=== PATIENT | female | born 1990 | race Caucasian/White ===

== ENCOUNTER 2018-01-02 10:40 | Emergency (ER) | payer OTHER, SELFPAY ==
[2018-01-02 10:41] VITALS: BP 95/68; PULSE 69; RESP 20; TEMP 36.5; O2SAT 100; BMI 23.1
--- NOTE | 2018-01-02 10:50 | RAD_ITS ---
STUDY: X-RAY - LEFT KNEE REASON FOR EXAM: Female, 27 years old. Jumped up and came down twisting her knee. TECHNIQUE: 4 view(s) of the knee. COMPARISON: None. FINDINGS: Normal visualized distal femur. Normal visualized proximal tibia and fibula. Normal proximal tibiofibular articulation. Normal medial femorotibial compartment. Normal lateral femorotibial compartment. Normal patellofemoral articulation. The soft tissue structures are unremarkable. RAD/Knee 4 or More Views IMPRESSION: Normal x-ray examination of the left knee. Electronically Signed: Rangel Peterson MD at 12:01 EDT , Service support ,
[2018-01-02] MEDS: Naproxen 500 MG Tablet PO (10:59)
[2018-01-02] MEDS: HYDROcodone Bitartrate/Apap 5/325 Tablet PO (10:59)
--- NOTE | 2018-01-02 12:22 | ED.VISSUMM ---
- ER Visit Summary Date of Service: 01/02/18 Chief Complaint: Left knee injury playing basketball at [facility] [facility] History of Present Illness: The patient is a 27 F who presents with left knee pain that she localizes to the medial anterior left knee and posterior lateral left knee. She states she was playing bascule. When she landed on her feet she felt a pop and had immediate pain. She states is unable to bear weight. She denies any prior knee problems or injury. She denies paresthesia, anesthesia motor weakness. She denies hip pain. Denies ankle pain. Physical Examination: The left knee is not swollen compared to the right. The patella is not ballotable and there is no effusion. There is medial joint line tenderness and pain in the lateral popliteal fossa. There is no palpable mass or pulsatile mass. Varus valgus stress testing causes discomfort medially and slight laxity with good endpoint medially. Tasia's test is negative. Modified Brandt's test causes significant pain medially and unable to perform test because patient is hesitant and will not allow me to the test because of pain. DP and PT pulses are palpable. She has full active range of motion at the hip. She is able to extend to 170? and flex to approximately 100?. There is no instability or evidence of injury left ankle. Test Results: 4 view x-ray of the knee was obtained which was interpreted by me as negative. There is no fracture, subluxation, dislocation or effusion. Emergency Department Course and Treatment: Patient was medicated with Naprosyn and [place]. X-ray was obtained to evaluate for fracture. Treatment Plan: Patient requested follow-up with Dr. Sheehan. She was discharged with crutches, anti-inflammatory and [place]. Disposition: Discharge with outpatient follow-up Impression: Traumatic left knee pain with meniscal injury This note was generated with [employer] dictation software. It may contain incorrect words, spelling, and punctuation that were not noted in review of the chart prior to signing ED Disposition - Plan for ED Patient: Disposition: Home or Assisted Living Chief Complaint: Lower Extremity Injury Instructions: ED Meniscal Injury Knee Poss Prescriptions: Hydrocodone Bitart/Apap 5-325 [[place] 5MG-325MG] 1 tab PO Q6H PRN PRN 3 Days #10 tab PRN Reason: Pain Naproxen [Naprosyn] 500 mg PO BID #14 tab Referrals: Care Physician,No Primary [Primary Care Provider] - Timbo Sheehan DO [STAFF PHYSICIAN] - 5-7 Days Additional Instructions: Bear weight as tolerated. Ice 6-8 times a day 2030 minutes at a time for the next 3-5 days.
--- NOTE | 2018-01-02 12:28 | ED.DCSUM_ITS ---
- ER Visit Summary Date of Service: 01/02/18 Chief Complaint: Left knee injury playing basketball at [employer] [facility] History of Present Illness: The patient is a 27 F who presents with left knee pain that she localizes to the medial anterior left knee and posterior lateral left knee. She states she was playing bascule. When she landed on her feet she felt a pop and had immediate pain. She states is unable to bear weight. She denies any prior knee problems or injury. She denies paresthesia, anesthesia motor weakness. She denies hip pain. Denies ankle pain. Physical Examination: The left knee is not swollen compared to the right. The patella is not ballotable and there is no effusion. There is medial joint line tenderness and pain in the lateral popliteal fossa. There is no palpable mass or pulsatile mass. Varus valgus stress testing causes discomfort medially and slight laxity with good endpoint medially. Tasia's test is negative. Modified Brandt's test causes significant pain medially and unable to perform test because patient is hesitant and will not allow me to the test because of pain. DP and PT pulses are palpable. She has full active range of motion at the hip. She is able to extend to 170? and flex to approximately 100?. There is no instability or evidence of injury left ankle. Test Results: 4 view x-ray of the knee was obtained which was interpreted by me as negative. There is no fracture, subluxation, dislocation or effusion. Emergency Department Course and Treatment: Patient was medicated with Naprosyn and [place]. X-ray was obtained to evaluate for fracture. Treatment Plan: Patient requested follow-up with Dr. Sheehan. She was discharged with crutches, anti-inflammatory and [place]. Disposition: Discharge with outpatient follow-up Impression: Traumatic left knee pain with meniscal injury This note was generated with [employer] dictation software. It may contain incorrect words, spelling, and punctuation that were not noted in review of the chart prior to signing ED Disposition - Plan for ED Patient: Disposition: Home or Assisted Living Chief Complaint: Lower Extremity Injury Instructions: ED Meniscal Injury Knee Poss Prescriptions: Hydrocodone Bitart/Apap 5-325 [[place] 5MG-325MG] 1 tab PO Q6H PRN PRN 3 Days #10 tab PRN Reason: Pain Naproxen [Naprosyn] 500 mg PO BID #14 tab Referrals: Care Physician,No Primary [Primary Care Provider] - Timbo Sheehan DO [STAFF PHYSICIAN] - 5-7 Days Additional Instructions: Bear weight as tolerated. Ice 6-8 times a day 2030 minutes at a time for the next 3-5 days.
[2018-01-02 12:49] VITALS: BP 107/72; PULSE 80; RESP 16; O2SAT 100
== END 2018-01-02 13:05 | disposition home or self-care (01) ==
PROVIDERS: Emergency Provider Emergency Medicine
DX: S83.8X2A Sprain of other specified parts of left knee, initial encounter (principal); M25.562 Pain in left knee; X58.XXXA Exposure to other specified factors, initial encounter; Y93.67 Activity, basketball; Y92.29 Other specified public building as the place of occurrence of the external cause; Y99.0 Civilian activity done for income or pay
CPT/HCPCS: 73564; 99284

== ENCOUNTER → 2018-01-12 15:46 | Outpatient (CLI) | payer OTHER, SELFPAY ==
--- NOTE | 2018-01-12 15:47 | MRI_ITS ---
STUDY: MRI LEFT KNEE REASON FOR EXAM: Female, 28 years old. Injury 10 days ago. Limited range of motion. Pain. TECHNIQUE: Standardized fat and water weighted pulse sequences were obtained in all 3 orthogonal planes. COMPARISON: X-ray January 02, 2018. FINDINGS: Normal medial meniscus. Normal hyaline cartilage of the medial femorotibial compartment. There is reactive marrow edema of the posterior medial tibial plateau. There is a partial tear and sprain of the MCL with interstitial and periligamentous edema. Normal distal semimembranosus, gracilis and semitendinosus tendons. Normal lateral meniscus. Normal hyaline cartilage of the lateral femorotibial compartment. There is reactive marrow edema of the lateral femoral condyle and posterior lateral tibial plateau. Normal proximal tibiofibular articulation. Normal lateral collateral (fibular) ligament. Normal popliteus tendon. Normal biceps femoris tendon. Discontinuity with rupture of the anterior cruciate ligament (ACL), series 4 image 06/13. Normal posterior cruciate ligament (PCL). Normal congruent patellofemoral articulation. Normal hyaline cartilage of the patellofemoral compartment. Normal medial and lateral patellar retinaculum. Normal quadriceps tendon. Normal patellar tendon. Normal Hoffa's fat pad. There is a large volume joint effusion. The soft tissues are unremarkable. The otherwise visualized osseous structures are unremarkable. MRI/Lower Ext Joint Only (Routine) IMPRESSION: Anterior cruciate ligament rupture. Medial collateral ligament sprain and partial tear. Bone bruising. Joint effusion. Electronically Signed: Bharath Theodore MD at 17:29 EDT , Service support ,
== END ==
PROVIDERS: Visit Provider Physician Assistant
DX: S83.207A Unspecified tear of unspecified meniscus, current injury, left knee, initial encounter (principal)
CPT/HCPCS: 73721

== ENCOUNTER 2018-02-22 14:00 | Outpatient (RCR) | payer OTHER, SELFPAY ==
--- NOTE | 2018-01-21 11:46 | HP.PTEVAL_ITS ---
Patient's Visit Information LORENZA URIBE is a 28 year old F referred to Physical Therapy by SHRADDHA Ocasio with a diagnosis of ACL/Mensical Tear. Date of Evaluation: 01/21/18 Physical Therapist: Mirela Junior - Visit Plan Frequency: 2x /Week Duration: 4 Weeks Plan: Focus on ROM, edema and strength pre surgical intervention - Subjective Subjective: Running group at [employer]- came down and popped- non cantact ACL, MCL and mensicus. Surgery is waiting for [employer] and hoping to have surgery at end of January. Injury was January 02, 2018. Went to the ER right away - then progress through [employer] since then. 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 She has been wearing the brace- She has been taking pain meds at night- tries to avoid as much as possible. Best: 0/10 Eases: pain meds , ice. Agg: on it for long periods of time, wearthe brace, walking a lot. Worst:6/10. Describes as sharp/shooting and dull achy at the end of the day. medial and posterior knee is the pain. No rading pain- no N/T. Has not been back to work- unable to restrain- no light duty. 15 month old son at home. PMHx : none Meds: hydrocodein and naproxen. Sleep: not disturbed but does bother her if she wakes up. Is able to drive due to being left leg. - Objective Posture: good throughout. Gait: antalgic- decreased stance on the left LE- poor heel/toe pattern secondary to decreased ROM. Observation: hinged brace on left knee. Girth: Patella: 36 cm 6 below: 34 cm 6 above: 50cm. ROM: 10-100 degrees. Strength: quad set visible but significantly less than other side- ankle: 5/5, hip: 4+/5 Core: fair - Goals Goal 1:: Patient will be I with HEP and progression Goal Time Frame: 4-6 Weeks Goal 2:: Patient will demo 0-115 degrees of ROM Goal Time Frame: 4-6 Weeks Goal 3:: Patient will have increased quad girth by 3 cm Goal Time Frame: 4-6 Weeks Goal 4:: Patient will decrease edema by 3 cm at patella Goal Time Frame: 4-6 Weeks - Rehabilitation Potential Physical Therapy Diagnosis: Patient presents with decreased ROM, strength, and muscular endurance s/p ACL and meniscal tear. Rehabilitation Potential: Fair - Anticipated Interventions Patient/Client Instruction: Educate patient on: Benefits of Fitness Program Therapeutic Exercise to Include: Strength training, Endurance training, Balance training, Coordination, Agility training, Body mechanics, Postural training, Flexibilty training, Gait and locomotor training, Passive ROM, Active ROM, Dynamic Lumbar Stabilization For the Purpose of:: To improve muscle performance and motor function TENS: Yes Cryotherapy (ice pack, ice massage): Yes Thermo therapy (hot pack): Yes Vasopneumatic device: Yes For the Purpose of:: To decrease pain, To decrease swelling/inflammation Thank you for the opportunity to evaluate your patient. For Medicare and Medicare HMO plans, please review the plan of care and approve it. It will need to be FAXED BACK to us at [phone] for Medicare purposes. Please let me know if there are questions or concerns regarding this plan of care. Physician Signature: Date:
--- NOTE | 2018-02-22 14:39 | HP.PTDCSUM ---
HP - PT D/C Summary It has been my pleasure to treat LORENZA URIBE under orders from SHRADDHA Ocasio, for the diagnosis of ACL/Mensical Tear for a total of 8 visit(s). Discharge Date: 02/22/18 Please see the following information for a summary of their discharge status. - Subjective Subjective: Plan nfor surgery tommorrow ACL reconstruction. Swelling better. Stronger overall - Pain Left Back Pain Intensity (Out of 10): 4 - Objective Objective/Function: GAIT: normal jennifer. NEURO: denies parathesia/tingling. AROM: 0-130 degrees supine knee flexion. MMT: quads/hams/hip 4/5. STAIRS: ascend/descend steps alternate. ATROPY: quad 6 45 cm - Goals Goal 1:: Patient will be I with HEP and progression Goal Progress: Goal Met Goal 2:: Patient will demo 0-115 degrees of ROM Goal Progress: Goal Met Goal 3:: Patient will have increased quad girth by 3 cm Goal Progress: Progressing Goal 4:: Patient will decrease edema by 3 cm at patella Goal Progress: Goal Met - Plan Plan: D/C due ACL reconstruction - D/C Information Discharge Comments: scheduled for ACL reconstruction If there are questions or concerns regarding this patient's physical therapy, please feel free to call me at [phone]. Thank you for the referral of this patient. Sincerely, Pradip Bolden, PT,
== END 2018-02-22 19:00 | disposition home or self-care (01) ==
LOC: PT 14:00
PROVIDERS: Visit Provider Physician Assistant
DX: S83.8X2D Sprain of other specified parts of left knee, subsequent encounter (principal)
CPT/HCPCS: 97110; 97161; 97530

== ENCOUNTER 2018-02-23 09:59 | Day surgery (SDC) | payer OTHER, SELFPAY ==
[2018-02-23] VITALS (9 sets, daily range): BP systolic 105–124; BP diastolic 61–78; PULSE 70–93; RESP 16–18; TEMP 36.5–37; O2SAT 93–100; BMI 22.6
[2018-02-23 11:03] LABS: Internal QC Validated? YES +Cl - CLEAR BKGD; Pregnancy, Urine Negative Negative
[2018-02-23] MEDS: Cefazolin 2 GM in 0.9% Normal Saline 100 ML IV (12:07)
[2018-02-23] MEDS: Bupiv/Epi 0.5% Mpf 30 ML Vial (12:28)
--- NOTE | 2018-02-23 14:00 | PCM.DC.ORTHO ---
Discharge Diet: No Restrictions - ttwb left leg for 6 weeks, 0-40 degrees of flexion while seated, keep knee locked in extension during ambulation and at night, follow up on wednesday with yasmine sarmiento, call with concerns Discharge Activity: May Not Drive May shower in (days): 1 Ice area for (Minutes): 20 - Every hour while awake. Weight Bearing Status: Weight bearing as tolerated Keep extremity elevated above heart level: Operative Extremity Call your doctor if your incision/area has: Continuous Slow Oozing, Sudden Increased Bleeding, Increased Pain/ Swelling, Increased Redness, Foul Smelling Discharge Call your doctor if you observe: Fever of 101 or Higher, Coldness, Increased Pain, Numbness or Tingling, Change in Color, Calf discomfort Allergies/Adverse Reactions: Allergies No Known Allergies Allergy (Verified 02/16/18 12:49) Medications to take at Discharge Hydrocodone Bitart/Apap 5-325 [[place] 5MG-325MG] 1 tab PO Q6H PRN PRN 3 Days #10 tab 01/02/18 Naproxen [Naprosyn] 500 mg PO BID #14 tab 01/02/18 Diazepam [Valium] 4 mg PO TID PRN PRN 7 Days #20 tablet 02/23/18 Hydrocodone Bitart/Apap 5-325 [[place] 5MG-325MG] 1 - 2 tablet PO Q6H PRN PRN 5 Days #40 tablet 02/23/18 The following prescriptions were given: Hydrocodone Bitart/Apap 5-325 [[place] 5MG-325MG] 1 - 2 tablet PO Q6H PRN PRN 5 Days #40 tablet PRN Reason: Pain Diazepam [Valium] 4 mg PO TID PRN PRN 7 Days #20 tablet PRN Reason: Spasms Primary Care Physician: Care Physician,No Primary [Primary Care Provider] - Test Results: Test results from this visit will be discussed in further detail at your follow-up appointment, if applicable. Please Follow Up With: Eryn Calderón, - [phone]
--- NOTE | 2018-02-23 14:01 | PCM.OPRPT ---
Report of Operation Date of Procedure: 02/23/18 Pre-Operative Diagnosis: left knee acl tear, med men tear Post-Operative Diagnosis: same Surgery/Procedure Performed:: left kne acl reconstruction with autograft hamstring/ graftlink; medial meniscus repair Type of Anesthesia:: General/Regional Anesthesiologist: Bishnu Celaya Specimen's removed: none Estimated Blood Loss (mL): minimal Fluids Replaced: 1000ml lr Description of Procedure: Preoperative note Patient seen and examined preoperative holding area. Left knee was marked. Patient continued to have medial knee pain as well as confirms ACL tear on MRI after falling at work we also question whether not she had a medial meniscus tear but because radiology did not note the medial meniscus tear on her imaging was not allowed. We discussed that we will repair whatever is necessary once we see it visually with the scope. Risks benefits alternatives surgery discussed with patient. Risks including but not limited to blood loss, blood clot, infection, neurovascular injury, failure procedure, loss of life and loss of limb. Patient is aware would like proceed with a knee arthroscopy ACL reconstruct with autologous hamstring graft link Arthrex repair is indicated. Operative note Patient seen and examined appropriate preoperative holding area. Left knee was marked. Patient brought to the operating room placed supine on the operating table. Signing, anesthesia, antibiotics were measured. The left knee was prepped and draped in usual sterile fashion with tourniquet around her upper thigh. Timeout was performed. We then marked our incision for hamstring retrieval. We marked that we made about a 3's and 1/2-4 cm incision after insufflating the incision with 7 cc of 5 cc of 1/4% bupivacaine with epi. And then used a 15 blade cut and dissected out tenotomy syllable of the hamstrings we then standard technique isolated the stomach T and prepared in standard fashion for a graft link Arthrex repair on the back table. We measured to be a 9 size graft. We then moved to our knee arthroscopy left leg was elevated exsanguinated tourniquet was raised her pressure of 250 torr. We began with creating an anterior lateral portal. Begin our diagnostic arthroscopy. We created anterior medial portal under direct visualization. We probed the posterior horn of the medial meniscus there is an obvious tear that we are able to stick a probe and was which was unstable. We then wrapped it and placed to reverse curved FasT-Fix suture devices across the repair and did note that a good repair after we had pleaded our fixation. We then moved to the ACL the ACL was obviously talked torn. We then performed our notchplasty and debrided an Anson the ACL down to the tibia but he lived leaving quite discernible stump at the insertion. We then used a lateral flip upper cutter out standard technique of flip cut the lateral tunnel after he placed a bump and the need to flex it to 90? ensuring proper positioning of her femoral tunnel. We then flipped and did the tibial tunnel and placing appropriate stitches through the tunnels and then irrigated the knee with copious amounts of sterile saline. We then placed our graft through the medial portal up through the lateral femoral cortex of the button on the outside and pulled down and then brought the rest the graft into the socket which we had good fill of the socket of the femoral tunnel. We then moved to the tibial tunnel tibia site was in flip cut as well and the graft had been was brought into the tibial tunnel in standard technique. We then tightened the graft with the knee in extension with limited posterior drawer with a needed about 20? of flexion. The all of the wounds were irrigated with copious amounts of sterile saline. We were able to palpate the button on the lateral femoral cortex. The portals were closed with interrupted 4-0 nylon and the 2 incisions were closed with deep 3-0 Vicryl and running 4-0 Monocryl. Sterile dressings were applied and patient tourniquet was deflated for total working time of 84 minutes. A hinged knee brace was placed on the patient received a postoperative regional block. Patient can range of motion from 0-40 with an the brace and locked in extension during ambulation at night. Next Patient transferred to recovery room in stable condition there are no comp occasions. Postoperative Toe-touch weightbearing left leg Hospital pharmacy has prescriptions Call with increased pain numbness tingling further issues arise Follow-up on Wednesday with Nasim for the dressing change and brace eval Call with any concerns This note was generated with [employer]ation software. It may contain incorrect words, spelling, and punctuation that were not noted in checking the note before signing.
[2018-02-23] MEDS: HYDROcodone Bitartrate/Apap 5/325 Tablet PO (16:45)
== END 2018-02-23 18:36 | disposition home or self-care (01) ==
LOC: SDC 10:01 → AC 10:02
PROVIDERS: Anesthesiology; Visit Provider Orthopaedic Surgery
PROC: (CPT 29882; principal; 2018-02-23 11:10)
DX: S83.512A Sprain of anterior cruciate ligament of left knee, initial encounter (principal); S83.242A Other tear of medial meniscus, current injury, left knee, initial encounter; Z79.1 Long term (current) use of non-steroidal anti-inflammatories (NSAID); Z79.891 Long term (current) use of opiate analgesic; X58.XXXA Exposure to other specified factors, initial encounter; Y93.9 Activity, unspecified; Y92.9 Unspecified place or not applicable; Y99.0 Civilian activity done for income or pay
CPT/HCPCS: 29882; 29888; 81025; C1713; J7120; J2405

== ENCOUNTER 2018-09-07 15:00 | Outpatient (RCR) | payer OTHER, SELFPAY ==
--- NOTE | 2018-04-01 17:00 | HP.PTEVAL_ITS ---
Patient's Visit Information LORENZA URIBE is a 28 year old F referred to Physical Therapy by SHRADDHA Ocasio with a diagnosis of S/P ACL RECONSTRUCTION WITH MEDIAL MENISCUS WITH REPAIR. Date of Evaluation: 04/01/18 Physical Therapist: Pradip Bolden, PT, - Visit Plan Frequency: 2-3x /Week Duration: 3 Months Plan: SEE PROTOCAL GUIDELINES FOR ACL RECONSTRUCTION WITH AUTOGRAFT AND MENISCUS REPAIR ON 02/23/18. S/P 04/06/18 6WEEKS. PATIENT IS TTWB WITH CRUCHES WITH BRACE LOCKED IN EXTENSION ABLE TO UNLOCK SITTING 60 DEGREES - Subjective Subjective: This 28 y/o femsle presenst to physical therapy with left ACL rec onstruction with meniscus repair with hamstring graft on 02/23/[address]casio at [facility]. Pateint was d/c with crutches with NWB left ,then post 2weeks TDWB LLE with knee brace locked when walking,and rest unlocked at 30 degrees. Patient intially DOI December 25 at work group of boys playing basketball jumping felt pop. Patient went to ER DOI . Seen DR Ocasio ,MRI was completed shown ACL and meniscus medial tear. Patient was in PT prior to PT. Patient has min edema uses ice. Denies parathesia/tingling . Patient using Estim at home. Sleeping okay .Patient ACL reconstruction limits QOL and function especially return to work. VOCATION: [employer]. SOCIAL: one children - Objective POSTURE: brace intact. GAIT: ambulated with TDWB LLE with crutches knee brace locked. NUERO: intact ,denies parathesia/tingling. PALPATION: unremarkable. EDEMA: joint line 37 cm. QUAD MEASURMENT: 6 ABOVE NID PATELLA 42cm. MMT: NT QUAD/HAMS ,hip abd/ext/add 4-/5. AROM: 0-60 Degrees supine knee flexion per MD. -FERNANDO. NO EXTENSION LAG WITH SLR - Goals Goal 1:: Patient to be Independant with HEP per guidelines. Goal Time Frame: 12-16 Weeks Goal 2:: Patient to improve AROM knee flexion 0-130 degrees or greater to improve function with gait. Goal Time Frame: 12-16 Weeks Goal 3:: Patient to gait with normal jennifer. Goal Time Frame: 12-16 Weeks Goal 4:: Patient to improve proprioception symmtrical right to left to improve function. Goal Time Frame: 12-16 Weeks Goal 5:: Patient to increase strength quads/hams/VMO 4/5 to improve function with gait . Goal Time Frame: 12-16 Weeks Goal 6:: Patioent be able to perform ADL'S and housework tasks be able to RWT with no limitations. Goal Time Frame: 12-16 Weeks - Rehabilitation Potential Physical Therapy Diagnosis: This patient underwent s/p ACL reconstruction with medial meniscus with autograft hamstrings garft on 02/23/18 with patient locked in extension with brace with TTDW using crutches okay to unlock to 60 degrees. Patient has deficits with ROM ,strength ,atrophied quad,balance proprioception with walking and RTD to job demnads /ADL'S. Rehabilitation Potential: Good - Anticipated Interventions Patient/Client Instruction: Educate patient on: Condition, Plan of Care For the Purpose of:: To decrease pain, To increase ROM, To improve muscle performance and motor function, To improve ability to perform ADL's, To increase tolerance to activity/condition/position, To improve performance and independence with ADL's, To improve ability of physical actions for home/community/work/leisure, To improve health of tissue, To decrease soft tissue restriction, To increase flexibility/ROM, To improve endurance, To improve balance, To improve safety with gait, To improve ability to perform tasks related to life management Therapeutic Exercise to Include: Strength training, Endurance training, Balance training, Flexibilty training, Gait and locomotor training, Passive ROM, Active ROM Comment: SEE GUIDELINES FOR ACL RECONSTRUCTION AND MENISCUS REPAIR For the Purpose of:: To decrease pain, To increase ROM, To improve muscle performance and motor function, To improve ability to perform ADL's, To increase tolerance to activity/condition/position, To improve performance and in dependence with ADL's, To improve ability of physical actions for home/community/work/leisure, To improve gait and locomotor functions, To improve health of tissue, To increase flexibility/ROM, To improve balance, To improve safety with gait TENS: Yes IF ES: Yes Cryotherapy (ice pack, ice massage): Yes Thermo therapy (hot pack): Yes Vasopneumatic device: Yes For the Purpose of:: To decrease pain, To decrease swelling/inflammation, To increase ROM, To improve nutrient delivery to tissue, To increase oxygenation perfusion, To improve health of tissue, To decrease soft tissue restriction Thank you for the opportunity to evaluate your patient. For Medicare and Medicare HMO plans, please review the plan of care and approve it. It will need to be FAXED BACK to us at [phone] for Medicare purposes. Please let me know if there are questions or concerns regarding this plan of care. Physician Signature: Date:
== END 2018-09-07 19:00 | disposition home or self-care (01) ==
LOC: PT 15:00
PROVIDERS: Referring Provider Physician Assistant; Visit Provider Physician Assistant
DX: S83.512D Sprain of anterior cruciate ligament of left knee, subsequent encounter (principal); S80.02XD Contusion of left knee, subsequent encounter; S83.412D Sprain of medial collateral ligament of left knee, subsequent encounter; Z98.890 Other specified postprocedural states
CPT/HCPCS: 97016; 97110; 97161

== ENCOUNTER 2018-12-29 09:00 | Outpatient (RCR) | payer OTHER, SELFPAY ==
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
== END 2018-12-29 19:00 | disposition home or self-care (01) ==
LOC: PT 09:00
PROVIDERS: Referring Provider Physician Assistant; Visit Provider Physician Assistant
DX: S83.512D Sprain of anterior cruciate ligament of left knee, subsequent encounter (principal); Z98.890 Other specified postprocedural states
CPT/HCPCS: 97014; 97110; 97530; G0283

== ENCOUNTER 2020-08-04 18:17 | Emergency (ER) | payer OTHER, SELFPAY ==
[2020-08-04 18:18] VITALS: BP 114/59; PULSE 75; RESP 16; TEMP 36.2; BMI 23.3
--- NOTE | 2020-08-04 18:37 | ED.VIS.GEN ---
History of Present Illness Chief Complaint: Lower Extremity Injury Informant: Patient Onset: Today Current Severity: Mild Maximum Severity: Mild Narrative: Patient present secondary to left knee pain. She had surgery for ACL, MCL, meniscus tears in 2019. Patient states she was at work today. She turned quickly and felt a pop sensation on the medial knee. She has a slight antalgic gait now. She states she has had paresthesias distal to her knee since her surgery and that is unchanged. Past Medical History - Allergies and Home Meds Allergies/Adverse Reactions: Allergies No Known Allergies Allergy (Verified 12/20/18 14:37) Primary Care Physician: Trinidad Cheney DO [Primary Care Provider] - Past Medical History: None Surgical History: - - Left knee Smoking Status: Never smoker Review of Systems General: Denies: Chills, Fever Eyes: Denies: Visual changes - bilaterally ENT: Denies: Bilateral ear pain Cardiovascular: Denies: Chest pain Respiratory: Denies: Dyspnea, Cough Gastrointestinal: Denies: Abdominal pain, Vomiting, Diarrhea Genitourinary: Denies: Dysuria Musculoskeletal: Reports: Extremity Pain. Denies: Swelling Skin: Denies: Rash Neurological: Denies: Headache Hematologic: Denies: Easy bruising, Easy bleeding Allergy: Denies: Uticaria Physical Exam Vital Signs/Narrative: Vital Signs Temp Pulse Resp BP 08/04/20 18:18 97.1 F L 75 16 114/59 L Inital Vital Signs reviewed: Yes General: Well nourished, Well developed Head: Normocephalic ENT: Moist mucous membranes Neck: Supple Cardiovascular: Regular rate, Regular rhythm Respiratory: No distress, CTA bilaterally Abdomen: Soft, Nontender Extremities: - - Tenderness palpation on the medial aspect of the left knee. Full range of motion. Anterior drawer test is negative. Ligaments are tight on testing. She does have medial pain with valgus stress testing. Skin: Normal color, No rash Neurological: Alert, Oriented x3 Psychological: Normal affect Diagnostic/Tx/Re-eval 4 views of the left knee are reviewed by myself. No acute bony injury noted. - Medical Decision Making X-rays reviewed and discussed with the patient. Area of tenderness is right at one of the surgical pins in place. This may all be scar tissue. Ligaments are stable on testing. Anson wrap will be applied and she will follow up with [facility]. If she still having continued problems I anticipate they will refer her back to her orthopedic doctor for further evaluation and imaging. ED Disposition - Plan for ED Patient: Disposition: Home or Assisted Living Diagnosis: Left knee sprain Instructions: ED Knee Sprain Referrals: [facility] [GROUP OF PHYSICIANS] - 3-5 Days
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
== END 2020-08-04 19:17 | disposition home or self-care (01) ==
PROVIDERS: Emergency Provider Emergency Medicine
DX: S83.92XA Sprain of unspecified site of left knee, initial encounter (principal); X50.1XXA Overexertion from prolonged static or awkward postures, initial encounter; Y93.89 Activity, other specified; Y92.89 Other specified places as the place of occurrence of the external cause; Y99.0 Civilian activity done for income or pay
CPT/HCPCS: 73564; 99282

== ENCOUNTER → 2020-08-12 13:24 | Outpatient (CLI) | payer OTHER, SELFPAY ==
[2020-08-04 18:18] VITALS: BMI 23.3
--- NOTE | 2020-08-12 13:34 | MRI_ITS ---
STUDY: MRI LEFT KNEE REASON FOR EXAM: Anterior and medial knee pain, surgery in 2019. TECHNIQUE: Standardized fat and water weighted pulse sequences were obtained in all 3 orthogonal planes. COMPARISON: Radiographs 08/04/2020, MRI images 01/12/2018. FINDINGS: There is a flap tear of the medial meniscus with a displaced fragment in the medial gutter (T2 coronal images 13-17). Normal hyaline cartilage of the medial femorotibial compartment. There is slight subchondral bone edema of the medial tibial plateau, a stress phenomenon. There is very mild periligamentous inflammation of the medial collateral ligament (T2 coronal image 16). Normal distal semimembranosus, gracilis and semitendinosus tendons. Normal lateral meniscus. Normal hyaline cartilage of the lateral femorotibial compartment. Normal lateral femoral condyle and tibial plateau. Normal proximal tibiofibular articulation. Normal lateral collateral (fibular) ligament. Normal popliteus tendon. Normal biceps femoris tendon. The anterior cruciate ligament graft appears intact (series 7 images 10, 11). Normal posterior cruciate ligament (PCL). Normal congruent patellofemoral articulation. Normal hyaline cartilage of the patellofemoral compartment. Normal medial and lateral patellar retinaculum. Normal quadriceps tendon. Normal patellar tendon. There is postoperative scarring in Hoffa''s fat pad. There is a small joint effusion. There is a mildly thickened medial patellar plica (T2 sagittal image 9). The soft tissues are unremarkable. There are postoperative changes of the distal femur and proximal tibia from anterior cruciate ligament reconstruction. MRI/Lower Ext Joint Only (Routine) IMPRESSION: Medial meniscal tear. Very mild periligamentous inflammation of the medial collateral ligament. Mildly thickened medial patellar plica. Intact anterior cruciate ligament graft. Small joint effusion. Electronically Signed: Leroy Terrazas MD at 14:32 EST Tel , Service support ,
== END ==
PROVIDERS: Referring Provider Family Medicine; Visit Provider Family Medicine
DX: S83.92XA Sprain of unspecified site of left knee, initial encounter (principal)
CPT/HCPCS: 73721

== ENCOUNTER 2020-10-16 07:49 | Day surgery (SDC) | payer OTHER, SELFPAY ==
--- NOTE | 2020-10-16 07:00 | HP_ITS ---
Intake Intake Visit Reasons: left knee Chief Complaint: left knee Allergies No Known Allergies Allergy (Verified 08/27/20 09:00) [facility] Social History (Updated 09/25/20 @ 08:17 by SHRADDHA Gale) Smoking Status: Never smoker HPI left knee: Surgical H&P: Yes Details: Parts of this documentation were recorded by a scribe, this documentation accurately reflects the service provided and the decisions made by me, Dr. Eryn Calderón DO 09/24/20 1010. LORENZA URIBE is a 30 year old F here today for sign consent for surgery 10/16/20. Surgery was explained at last visit and she wishes to proceed with a left knee arthroscopy for medial meniscus repair vs meniscectomy, surgery as indicated. Ortho Exam Left Knee Homans Sign: No Examination: Yes med jt line tenderness, No Lat jt line tenderness, No TTP inf pole patella Stability: NML: Anterior Drawer, NML: Tasia, NML: Posterior Drawer, NML: Valgus 0, NML: Valgus 30, NML: Varus 0, NML: Varus 30, NML: Dial 90, NML: Dial 30 Patellar Tilt Normal: Yes Assessment & Plan Problems 1. Other tear of medial meniscus, current injury, left knee, initial encounter S83.242A 2. Sprain of unspecified site of left knee, initial encounter S83.92XA Plan - Dr. Eryn Calderón DO Personally reviewed the patient's medical history, medications, surgeries and recent exams if available. Obtained X-rays of patient's left knee. Personally reviewed x-rays. There is no obvious fracture, dislocation, or lucency noted. Personally reviewed patients MRI of the left knee. Patient educated that she does have a medial meniscus tear and her graft is intact. Treatment options are do nothing or steroid injection or PT or left knee arthroscopy for meniscus repair vs meniscectomy. Reviewed the pre-operative plans with the patient. Risks and benefits of the procedure were fully explained, including but not limited to infection, neurovascular injury, continued pain, arthritis, stiffness, need for further surgery, re-injury, DVT, PE, general risks of anesthesia, and loss of limb or life. The patient understands all the risks and does wish to proceed with written consent for left knee arthroscopy for medial meniscus repair vs meniscectomy, surgery as indicated. Follow up post op or sooner if pain, swelling, numbness or associated symptoms, or concerns develop. , All questions answered. Patient in agreement of plan. Coding Level of Care Code Off vis,est,level 4 Diagnoses Other tear of medial meniscus, current injury, left knee, initial encounter S83.242A Sprain of unspecified site of left knee, initial encounter S83.92XA
[2020-10-16 08:15] LABS: Internal QC Validated? YES +Cl - CLEAR BKGD; Pregnancy, Urine Negative Negative
[2020-10-16 08:16] VITALS: BP 100/59; PULSE 75; RESP 16; TEMP 37.2; O2SAT 99; BMI 22.4
[2020-10-16] MEDS: Lactated Ringers 1,000 ML 100 ML IV (08:23)
--- NOTE | 2020-10-16 09:12 | PCM.DC ---
Discharge Instructions Outpatient Procedure Reason For Visit: LT KNEE ARTHROSCOPY MEDICAL MENISCUS REPAIR VS MEN Diet Discharge Diet: No restrictions Activity Discharge Activity: Return to Normal Activity Follow Up Care When: 2 weeks, wbat left leg, elevate/ice/ankle pumps Test Results: Test results from this visit will be discussed in further detail at your follow-up appointment, if applicable. Discharge Plan Admission Attending Provider: Eryn Calderón Primary Care Provider: Trinidad Cheney Discharge Orders/Prescriptions Prescriptions: New oxycodone-acetaminophen [Percocet] 5-325 mg tablet 1 tab PO Q6H PRN (Reason: pain) 5 Days Qty: 28 RF: 0 No Action krifskzcgdyc-Mq-qrxf-minerals 1 EACH tablet 1 tablet PO DAILY RF: 0 Other Ambulatory Orders: COVID 19 AG RAPID (RN COLLECT) (Routine) Timeframe: [id number] Facility: [facility] - Location: Laboratory Ordered By: Dr. Vasiliy Ballard Referrals: Trinidad Cheney, [Primary Care Provider] - Disposition Discharge Orders: Discharge Patient (Routine); Ordered 10/16/20 Ordered By: Dr. Eryn Calderón
--- NOTE | 2020-10-16 09:13 | HP.PCM_ITS ---
History and Physical [facility] [id number] [facility] [address] [place] [address] [phone] OFFICE VISITDate of Service: 09/24/20 MR#:[id number]:[id number]: LORENZA URIBE LRep #:[id number]:1990 Provider:Dr. Eryn Calderón DOAge/Sex: 30/F [place] [place] [place] Int[place] Intake Visit Reasons: left knee Chief Complaint: left knee Allergies No Known Allergies Allergy (Verified 08/27/20 09:00) [facility] Social History (Updated 09/25/20 @ 08:17 by SHRADDHA Gale) Smoking Status: Never smoker HPI left knee: Surgical H&P: Yes Details: Parts of this documentation were recorded by a scribe, this documentation accurately reflects the service provided and the decisions made by me, Dr. Eryn Calderón DO 09/24/20 1010. LORENZA URIBE is a 30 year old F here today for sign consent for surgery 10/16/20. Surgery was explained at last visit and she wishes to proceed with a left knee arthroscopy for medial meniscus repair vs meniscectomy, surgery as indicated. Ortho Exam Left Knee Homans Sign: No Examination: Yes med jt line tenderness, No Lat jt line tenderness, No TTP inf pole patella Stability: NML: Anterior Drawer, NML: Tasia, NML: Posterior Drawer, NML: Valgus 0, NML: Valgus 30, NML: Varus 0, NML: Varus 30, NML: Dial 90, NML: Dial 30 Patellar Tilt Normal: Yes Assessment & Plan Problems 1. Other tear of medial meniscus, current injury, left knee, initial encounter S83.242A 2. Sprain of unspecified site of left knee, initial encounter S83.92XA Plan - Dr. Eryn Calderón DO Personally reviewed the patient's medical history, medications, surgeries and recent exams if available. Obtained X-rays of patient's left knee. Personally reviewed x-rays. There is no obvious fracture, dislocation, or lucency noted. Personally reviewed patients MRI of the left knee. Patient educated that she does have a medial meniscus tear and her graft is intact. Treatment options are do nothing or steroid injection or PT or left knee arthroscopy for meniscus repair vs meniscectomy. Reviewed the pre-operative plans with the patient. Risks and benefits of the procedure were fully explained, including but not limited to infection, neurovascular injury, continued pain, arthritis, stiffness, need for further surgery, re-injury, DVT, PE, general risks of anesthesia, and loss of limb or life. The patient understands all the risks and does wish to proceed with written consent for left knee arthroscopy for medial meniscus repair vs meniscectomy, surgery as indicated. Follow up post op or sooner if pain, swelling, numbness or associated symptoms, or concerns develop. , All questions answered. Patient in agreement of plan. Coding Level of Care Code Off vis,est,level 4 Diagnoses Other tear of medial meniscus, current injury, left knee, initial encounter S83.242A Sprain of unspecified site of left knee, initial encounter S83.92XA 09/24/20 1441<Electronically signed by Eryn Calderón DO>Date Eryn Calderón DO 09/25/20 0817<Electronically signed by Jeanette LLANES>Cosigner Signature:Date (if applicable)Jeanette Ojeda CC: ~ insert hnp no changes
--- NOTE | 2020-10-16 09:13 | PCM.OPRPT ---
Report of Operation Date of Procedure: 10/16/20 Pre-Operative Diagnosis: left knee med men tear Post-Operative Diagnosis: same Surgery/Procedure Performed:: mya johnson reproduction production manager: Darrell Goyal Type of Anesthesia: General/Regional Anesthesiologist: Gulshan Cheek Estimated Blood Loss (mL): min Fluids Replaced: 350cc Description of Procedure: Preoperative note Patient is a 30-year-old female well-known to me. Patient had surgery couple years ago recently had a twisting injury to her right knee and felt immediate pain on her medial joint line MRI confirms radial tear of her medial meniscus. Risk-benefit and alternative surgery discussed with patient risks including but not limited to blood loss, blood clot, infection, neurovascular, failed procedure, loss of life and loss of limb. Patient is aware like proceed with right knee arthroscopy peer is an acute Dragon Covid Operative note We discussed the current risk associated COVID-19. While it is understood that there is a community spread of COVID 19 the risk of haylee COVID-19 while at [facility] is very low, however, the risk cannot be completely mitigated because of the community spread of the disease. We discussed in detail the risk of exposure to and or potential harm posed by the COVID-19 virus with having a surgery/procedure at this time versus the risk of delaying the surgery/procedure. Is not possible to know either the risk of delaying the surgery procedure or chance of getting an infection with perfect accuracy, but a joint decision was made to proceed at this time with a schedule surgery/procedure as indicated on the consent form. Patient was notified that we will need to comply with any screening or testing [facility] wishes to perform or that surgery may be delayed for any positive results. Operative note Patient seen and examined preoperative holding area. Left knee was marked. Patient brought to the operating room placed supine on the operating table. Signed, anesthesia, antibiotics were administered left leg was prepped and draped in usual sterile technique with a tourniquet around her upper thigh. All bony promises well-padded SCD placed on her contralateral limb. Left then leg was then elevated segment anterograde stretcher pressure of 250 torr. Timeout was performed. We then used our previous anterolateral and anteromedial portal placements. Began our diagnostic arthroscopy. Use 11 blade for an anterolateral. Her patellofemoral joint was intact for moved to the medial joint line creating anteromedial portal and direct visualization. She had an unstable radial tear of her medial meniscus was gently debrided with the shaver. We then reprobed the area we had stable remnant meniscus remaining. The ACL PCL were present and then the notch. The lateral meniscus was intact and stable probing the lateral femoral condyle medial femoral condyle lateral tibial plateau and medial tibial tibial plateau were all intact and stable stable to probing. I irrigated with copious amounts of sterile saline. The tourniquet was deflated. Portals were closed with interrupted 4 nylon stitches. Patient tired procedure well no complications have recovery room in stable condition Postop note Weight-bear as tolerated left leg Follow-up in 2 weeks Call with increased pain numbness tingling or further issues arise Disclaimer this note was generated with [employer]ation software. It may contain incorrect words, spelling, and punctuation that were not noted in checking the note before signing.
[2020-10-16] MEDS: Cefazolin 2 GM in 0.9% Normal Saline 100 ML IV (09:14)
[2020-10-16] MEDS: Epinephrine (1 mg/ml) 1 MG/ML VIAL (09:35)
[2020-10-16] MEDS: Bupiv/Epi 0.25% 30 ML Vial (09:54)
[2020-10-16] MEDS: Mupirocin Ointment 22gm Tube 1 APPLIC (09:54)
[2020-10-16 10:15] VITALS: BP 100/59; BP 104/77; PULSE 66; RESP 18; TEMP 36.8; O2SAT 100
[2020-10-16 10:30] VITALS: BP 100/59; BP 101/67; PULSE 73; RESP 18; O2SAT 97
[2020-10-16 10:45] VITALS: BP 100/59; BP 110/72; PULSE 61; RESP 16; O2SAT 100
[2020-10-16 11:00] VITALS: BP 100/59; BP 102/76; PULSE 55; RESP 18; TEMP 36.7; O2SAT 100
[2020-10-16 12:33] VITALS: BP 100/59; BP 101/71; PULSE 60; RESP 16; TEMP 37.3; O2SAT 99
== END 2020-10-16 12:40 ==
LOC: SDC 07:49 → AC 07:50
PROVIDERS: Anesthesiology; Referring Provider Orthopaedic Surgery; Visit Provider Orthopaedic Surgery
PROC: (CPT 29882; principal; 2020-10-16 09:10)
DX: S83.242A Other tear of medial meniscus, current injury, left knee, initial encounter (principal); X50.1XXA Overexertion from prolonged static or awkward postures, initial encounter; Y93.89 Activity, other specified; Y92.89 Other specified places as the place of occurrence of the external cause; Y99.0 Civilian activity done for income or pay
CPT/HCPCS: 01400; 29881; 81025; 87635; C9803; J7120; U0002